=== PATIENT | male | born 1940 | race Caucasian/White ===

== ENCOUNTER → 2018-01-31 | Day surgery (SDC) | payer MEDICARE, BC ==
[~2018-01-31] VITALS: Ht 165.1 cm; Wt 78.5 kg
[~2018-01-31] MED LIST: ALBUTEROL/IPRATROPIUM 3 ML NEB ONE; AMLO-96 PO; ASPI-715 PO; ATOR20TA65 PO; BESI5DRO OP; BLOO1STR16 MC; CYCL10TA29 PO; EZET1TAB61 PO; FLU180SY9 IM; FLU45SYR25 IM ONLY; FLU60SYR30 IM ONLY; GARL1CAP PO; GLIM4TAB50 PO; HYDR-385 PO; IBU600 PO; LIDOCAINE MPF 1% 5 ML VIAL ONE; LIDOCAINE/SOD BICARB 8.4% SYR ID ONE; LIS20 PO; LISI-347 PO; LISI-353 PO; LISI-357 PO; LISI-362 PO; LISI20TA29 PO; MELO-205 PO; METF-407 PO; METF10002 PO; METF500T4 PO; METO100T20 PO; METO25TA93 PO; METXR500 PO; MULT-1335 PO; MULT-145 PO; NORMOSOL R SOLN(*) 1000 ML BAG 1,000 ML IV PRN; OXYC-373 PO; PNEU0.5D3 IM; PRED20TA6 PO; PROPOFOL EMUL(*) 10MG/ML 20 ML 60 ML ONE; SITA100T9 PO; SPIR25TA78 PO; ZOST19404 SC
--- NOTE | 2018-01-31 07:25 | Post Operative Progress Note ---
Post Operative Progress Note Date: January 31, 2018 Time: 10:02 Surgeon: adrianna Anesthesia: dr wells Pre-Op Diagnosis: history of polyps Post-Op Diagnosis: diverticulosis and 2 2 mm polyps at 15 cm and one 2 mm polyps at 10 cm Procedure(s): colonoscopy and polypectomy MIGUE PETERSON MD January 31, 2018 07:25
--- NOTE | 2018-01-31 07:26 | Short(Outpt) Discharge Summary ---
Discharge Summary Reason for Hosp/Final Diag: (1) Encounter for colonoscopy due to history of adenomatous colonic polyps Hospital Course & Plan: diverticulosis and 3 2 mm polyps Departure Discharge to: Home Discharge Instructions Home Meds Active Scripts Metformin Hcl (GLUCOPHAGE XR) 500 Mg Tab.er.24h, 2 TAB PO QDAY, #90 TAB 4 Refills Prov:SATINDER SHANNON MD 11/05/17 Amlodipine Besylate (AMLODIPINE BESYLATE) 5 Mg Tablet, 1 TAB PO QDAY, #90 TAB 3 Refills TAKE ONE TABLET BY MOUTH EVERY DAY Prov:SATINDER SHANNON MD 07/30/17 Lisinopril/Hydrochlorothiazide (LISINOPRIL-HCTZ 20-12.5 MG TAB) 1 Each Tablet, 2 EACH PO QDAY, #180 TAB 3 Refills Prov:SATINDER SHANNON MD 07/30/17 Atorvastatin Calcium (ATORVASTATIN CALCIUM) 20 Mg Tablet, 1 TAB PO QDAY, #90 TAB 3 Refills Prov:SATINDER SHANNON MD 07/30/17 Glimepiride (GLIMEPIRIDE) 4 Mg Tablet, 4 MG PO QDAY, #90 TAB 3 Refills Prov:SATINDER SHANNON MD 07/30/17 Blood Sugar Diagnostic (FREESTYLE LITE TEST STRIPS) 1 Each Strip, 1 EACH MC QDAY , #100 STRIP 3 Refills Prov:SATINDER SHANNON MD 07/30/17 Reported Medications Besifloxacin Hcl (BESIVANCE) 5 Ml Drops.susp, 5 ML OP TID 01/23/18 Aspirin (Aspirin) 81 Mg Tablet.dr, 81 MG PO DAILY, 0 Refills 07/01/10 Diet: Regular Activity: As Tolerated MIGUE PETERSON MD January 31, 2018 07:26
[2018-01-31 08:40] VITALS: BP 137/83
[2018-01-31 09:58] VITALS: BP 101/63
[2018-01-31 10:15] VITALS: BP 111/74
[2018-01-31 10:30] VITALS: BP 111/74
[2018-01-31 11:04] VITALS: BP 138/87
[2018-01-31 11:10] VITALS: BP 158/88
--- NOTE | 2018-01-31 15:51 | OPERATIVE REPORT 1 ---
EVENT DATE: January 31, 2018 SURGEON: Ha Lin MD ANESTHESIOLOGIST: Aleks Zhu MD ANESTHESIA: Sedation. PREOPERATIVE DIAGNOSIS Personal history of polyps. POSTOPERATIVE DIAGNOSES 1. Diverticulosis in the colon. 2. Two 2 mm polyps at 15 cm. 3. One 2 mm polyp at 10 cm. PROCEDURE PERFORMED Colonoscopy with polypectomy. DESCRIPTION OF PROCEDURE Patient was placed in the left lateral decubitus position and given intravenous sedation. Rectal exam was unremarkable. Flexible colonoscope was inserted and advanced to the anastomosis. This was widely patent. No abnormal were noted there. Scope was slowly withdrawn. We immediately began running into diverticula in the entire left colon. No inflammation. At 15 cm, he had two adjacent small, 2 mm polypoid projections. These were removed with the cold cup. At 10 cm, he had another one. This was removed with the cold cup. The rest of the rectum was normal. MTDD
== END ==
LOC: OR 00:54
PROVIDERS: ATTEND Surgery
DX: Z12.11 Encounter for screening for malignant neoplasm of colon (principal); K63.5 Polyp of colon; K57.30 Diverticulosis of large intestine without perforation or abscess without bleeding; E11.9 Type 2 diabetes mellitus without complications
CPT/HCPCS: 00811; 36416; 45380; 82948; 88305; 94640; 94667; J2001; J2704; J7620

== ENCOUNTER → 2018-02-01 | Outpatient (CLI) | payer MEDICARE, BC ==
[~2018-02-01] MED LIST changes: -ALBUTEROL/IPRATROPIUM 3 ML NEB ONE; -LIDOCAINE MPF 1% 5 ML VIAL ONE; -LIDOCAINE/SOD BICARB 8.4% SYR ID ONE; -NORMOSOL R SOLN(*) 1000 ML BAG 1,000 ML IV PRN; -PROPOFOL EMUL(*) 10MG/ML 20 ML 60 ML ONE
[2018-02-01 10:28] LABS: PLATELET COUNT, AUTOMATED 240 K/uL (150-450)
--- NOTE | 2018-02-01 12:16 | RADIOLOGY IMAGING REPORT ---
FACILITY: [facility] [place] PATIENT NAME: Ranjan Mason : 1940 MR: [id number] V: [id number] EXAM DATE: ORDERING PHYSICIAN: SATINDER SHANNON TECHNOLOGIST: Location: [facility] Patient: Ranjan Mason : 1940 Visit/Account:[id number] Date of Sevice: 02/01/2018 CHEST PA AND LAT COMPARISONS: Single view chest dated February 07, 2017 ADDITIONAL PERTINENT HISTORY: Hypoxia since colonoscopy yesterday. History of smoking. FINDINGS: Cardiomediastinal silhouette: Mild cardiomegaly. 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 Lung mendez: Hyperexpanded lung mendez with background interstitial scarring. Otherwise negative Pleural spaces: Negative. Osseous structures: Negative. Surrounding soft tissues: Negative. IMPRESSION: 1. Hyperexpanded lung mendez with background interstitial scarring. 2. No evidence of acute cardiopulmonary disease. Report Dictated By: Gama Ch MD at 02/01/2018 12:11 PM Report E-Signed By: Gama Ch MD at 02/01/2018 12:13 PM WSN:[id number]
== END ==
LOC: LAB 10:00
PROVIDERS: ATTEND Internal Medicine
DX: I70.0 Atherosclerosis of aorta (principal); I51.7 Cardiomegaly; R97.20 Elevated prostate specific antigen [PSA]; R94.31 Abnormal electrocardiogram [ECG] [EKG]; E11.9 Type 2 diabetes mellitus without complications; E78.5 Hyperlipidemia, unspecified; I10 Essential (primary) hypertension; R06.00 Dyspnea, unspecified; R09.02 Hypoxemia; R91.8 Other nonspecific abnormal finding of lung field; F17.200 Nicotine dependence, unspecified, uncomplicated
CPT/HCPCS: 36415; 71046; 82040; 82247; 82310; 82374; 82435; 82465; 82565; 82947; 83036; 83718; 83880; 84075; 84132; 84153; 84155; 84295; 84443; 84450; 84460; 84478; 84520; 85025

== ENCOUNTER → 2018-02-12 | Outpatient (CLI) | payer MEDICARE, BC | LOC: RESP 01:34 | PROVIDERS: ATTEND Internal Medicine | DX: J98.4 Other disorders of lung (principal) | CPT/HCPCS: 94060; 94726; 94729 ==

== ENCOUNTER → 2018-11-06 | Outpatient (CLI) | payer MEDICARE, BC ==
[~2018-11-06] MED LIST changes: +ALBU8.5H IH; +AMLO-125 PO; -AMLO-96 PO; +CIPR-214 PO; +FLUT16SP19 NS; +MUPI15CR2 TP; -SPIR25TA78 PO; +SPIR25TA80 PO; +SULF-198 PO
[2018-11-06 16:30] LABS: PLATELET COUNT, AUTOMATED 330 K/uL (150-450)
== END ==
LOC: LAB 15:51
PROVIDERS: ATTEND Internal Medicine
DX: I83.009 Varicose veins of unspecified lower extremity with ulcer of unspecified site (principal); L97.909 Non-pressure chronic ulcer of unspecified part of unspecified lower leg with unspecified severity; E11.9 Type 2 diabetes mellitus without complications
CPT/HCPCS: 36415; 82040; 82247; 82310; 82374; 82435; 82565; 82947; 83036; 84075; 84132; 84155; 84295; 84450; 84460; 84520; 85025; 85651; 86140

== ENCOUNTER 2018-11-18 11:46 | Outpatient (RCR) | payer MEDICARE, BC ==
[~2018-11-18 11:46] MED LIST changes: -CIPR-214 PO; -MUPI15CR2 TP
== END 2018-11-18 11:47 | disposition home or self-care (01) ==
LOC: PT 11:46
PROVIDERS: ATTEND Internal Medicine
DX: Z02.9 Encounter for administrative examinations, unspecified (principal)

== ENCOUNTER → 2018-11-28 | Outpatient (CLI) | payer MEDICARE, BC ==
[~2018-11-28] MED LIST changes: +CIPR-214 PO; +MUPI15CR2 TP
== END ==
LOC: LAB 15:24
PROVIDERS: ATTEND Surgery
DX: L23.9 Allergic contact dermatitis, unspecified cause (principal)
CPT/HCPCS: 87071; 87205; 88305

== ENCOUNTER → 2018-12-03 | Outpatient (CLI) | payer MEDICARE, BC ==
[~2018-12-03] MED LIST changes: +IOPAMIDOL 76% 150 ML INFUS BTL 150 ML ONE
--- NOTE | 2018-12-03 11:14 | RADIOLOGY IMAGING REPORT ---
FACILITY: [facility] - [place] PATIENT NAME: Ranjan Mason : 1940 MR: [id number] V: [id number] EXAM DATE: ORDERING PHYSICIAN: AMPARO FRANKS TECHNOLOGIST: Location: [facility] [place] Patient: Ranjan Mason : 1940 Visit/Account:[id number] Date of Sevice: 12/03/2018 CT ABDOMEN PELVIS W & W/O CONTRAST HISTORY: gross hematuria TECHNIQUE: Axial images acquired through the abdomen/pelvis both with and without IV contrast.. Rashmi nal and sagittal reformatting also performed.Dose Lowering Technique One of the following dose optimization techniques was utilized in the performance of this exam: Autom ated exposure control; adjustment of the mA and/or kV according to the patient's size; or use of an i terative reconstruction technique. Specific details can be referenced in the facility's radiology C T exam operational policy. CONTRAST: 75 mL [id number] COMPARISON: None. FINDINGS: Visualized lung bases: There calcified and noncalcified pleural plaques seen along the inferior aspe ct of both hemithoraces . There are coronary artery calcifications Hepatobiliary: There is a subcentimeter hypodensity posterior aspect dome of the liver which is too small to characterize Spleen: Negative. Adrenals: There is mild thickening of both adrenal glands Pancreas: There several small calcifications within the pancreatic body and head Kidneys ureters and bladder: There are several subcentimeter ovoid hypodensities within the interpola r region of the left kidney which are too small to characterize. There is a tiny 1 mm punctate calci fication seen in the proximal third of the left ureter best identified on image 205 of series 5. The re is no evidence of hydronephrosis or hydroureter. The prostate is enlarged and impinges upon the f zoe the urinary bladder. There is an asymmetric hyperdensity along the posterior wall the bladder t o the right of midline which is best appreciated on image 62 of sagittal series 8. This could be rel ated to the enlarged prostate gland although a bladder floor mass cannot be entirely excluded. There is a 2.1 x 1.8 cm hypoattenuating mass centrally within the prostate gland is appreciated on axial i mage 114 of series 6 Genitalia: Please see above GI: There postsurgical changes of the ascending colon is mild diverticulosis in the descending colon although no CT evidence of acute diverticulitis Vessels/spaces/nodes: There are at least moderate atherosclerotic calcifications of the abdominal ao rta and branch vessels There shotty retroperitoneal lymph nodes Bones/soft tissues: There are small bilateral inguinal hernias containing fat. There are spondyloti c changes lumbar spine Additional findings: None pertinent. IMPRESSION: There is a tiny 1 mm punctate calcification in the proximal third the left ureter best identified on image 205 of series 5. There is no evidence of hydronephrosis or hydroureter. Prostate is enlarged heterogeneous and impinges upon the floor the urinary bladder. There is a 2.1 x 1.8 cm hyperattenuating mass centrally within the prostate gland as described above. There is asymmetric hyperdensity along the posterior wall the bladder to the right of midline which c ould be related to the enlarged prostate gland although a mass within the bladder floor cannot be ent irely excluded. Calcified and noncalcified pleural plaques along the inferior aspect of both hemithoraces. This rais es the question of possible asbestos exposure. Postsurgical changes of the ascending colon and mild diverticulosis of the descending colon Small bilateral inguinal hernias containing fat Additional chronic findings as described Report Dictated By: Nora Garcia MD at 12/03/2018 10:09 AM Report E-Signed By: Nora Garcia MD at 12/03/2018 10:40 AM WSN:[email or web address]
== END ==
LOC: CT 01:31
PROVIDERS: ATTEND Urology
DX: Z01.818 Encounter for other preprocedural examination (principal); R31.0 Gross hematuria; R91.8 Other nonspecific abnormal finding of lung field; I25.10 Atherosclerotic heart disease of native coronary artery without angina pectoris; N28.89 Other specified disorders of kidney and ureter; Z98.890 Other specified postprocedural states; K40.10 Bilateral inguinal hernia, with gangrene, not specified as recurrent
CPT/HCPCS: 36415; 74178; 82565; Q9967